=== PATIENT | female | born 1970 | race Caucasian/White ===

== ENCOUNTER 2022-01-09 11:56 | Emergency (ER) | payer BC ==
[~2022-01-09] VITALS: Ht 165.1 cm; Wt 72.0 kg
[2022-01-09] MEDS ORDERED: ONDANSETRON 4MG ODT PO ONE (14:15)
[2022-01-09] MEDS ORDERED: ONDANSETRON HCL 4MG/2ML INJ IV ONE (14:30)
[2022-01-09] MEDS ORDERED: KETOROLAC 15MG/ML VIAL IV ONE (14:30)
[2022-01-09 14:41] VITALS: BP 139/83
[2022-01-09 14:58] LABS: BASOPHILS % 0.5 % (0.0-2.0); EOSINOPHILS % 0.1 % (0.0-5.0); HEMATOCRIT. 38.6 % (36.0-48.0); LYMPHOCYTES % 18.4 % (20.0-50.0); MEAN CORPUSCULAR HEMOGLOBIN 29.5 pg (28.0-32.0); MEAN CORPUSCULAR VOLUME 87.8 fL (81.0-99.0); MEAN PLATELET VOLUME 8.3 fl (7.4-10.4); MONOCYTES % 7.2 % (2.0-8.0); NEUTROPHILS % 73.8 % (40.0-76.0); PLATELET 340 x1000/uL (130-400); RED CELL DISTRIBUTION WIDTH 13.6 % (11.6-14.6)
[2022-01-09 15:02] LABS: CHLORIDE 104 mEq/L (98-107); HCG SCREEN NEGATIVE
[2022-01-09 15:03] LABS: PROTHROMBIN TIME 10.8 sec (9.6-11.0)
[2022-01-09 15:52] LABS: CLARITY URINE CLOUDY (CLEAR); COLOR URINE DARK YELLOW (YELLOW); KETONES URINE TRACE (NEGATIVE); LEUKOCYTE ESTERASE URINE 1+ (NEGATIVE); NITRITE URINE NEGATIVE (NEGATIVE); OCCULT BLOOD URINE 1+ (NEGATIVE); PH URINE 8.5 (4.5-8.0); PROTEIN URINE 1+ (NEGATIVE)
[2022-01-09] MEDS ORDERED: NITR100C MT (17:06)
== END 2022-01-09 17:41 | disposition home or self-care (01) ==
LOC: ER 11:56 → CANBEDREQ 17:19 → ER 17:41
DX: N39.0 Urinary tract infection, site not specified (principal)
CPT/HCPCS: 36415; 74176; 76700; 80053; 81003; 83690; 84703; 85025; 85610; 93005; 96374; 96375; 99285; J1885; J2405